=== PATIENT | female | born 1945 | race Caucasian/White ===

== ENCOUNTER 2017-04-30 18:47 | Emergency (ER) | payer OTHER ==
--- NOTE | 2017-04-30 18:47 | EDPHY ---
H & P Time Seen by Provider: 04/30/17 18:47 Source: Patient Constitutional: Initial Vital Signs Temperature (C) 36.9 C 04/30/17 18:59 Heart Rate 105 H 04/30/17 18:59 Respiratory Rate 20 04/30/17 18:59 Blood Pressure 158/91 H 04/30/17 18:59 O2 Sat (%) 93 04/30/17 18:59 O2 Delivery Mode Room Air Allergies/Adverse Reactions: No Known Allergies Allergy (Unverified 04/30/17 18:58) Home Medications: Medication Instructions Recorded GABAPENTIN 04/30/17 traMADol 04/30/17 Medical Decision Making - Diagnostics Imaging: I viewed and interpreted images myself ED Course/Re-evaluation: CHIEF COMPLAINT: Head and toe injury HISTORY OF PRESENT ILLNESS: The patient is a 71-year-old female, brought in by EMS, after a mechanical fall presents with head hematoma and toe injury. The patient was walking into [employer] and tripped on the rug. She fell forward and hit the front left of her head. The patient did not lose consciousness. No reported amnesia. Patient only complains of right toe pain. On scene she had mild neck pain and was placed in a cervical collar. Patient no longer has cervical pain. She states she took two Tramadol 1 hour ago. Patient is not on anticoagulants. REVIEW OF SYSTEMS: A 10 point review of systems was performed and is negative with the exception of the elements mentioned in the history of present illness. PHYSICAL EXAM: HR, BP, O2 Sat, RR. Temp noted General Appearance: Alert, well hydrated, appropriate, and non-toxic appearing. Head: Hematoma to front left forehead. Eyes: Pupils equal, round, reactive to light and accommodation, EOMI, no trauma , no injection. Ears: Clear bilaterally, no perforation, normal landmarks Nose: Atraumatic, no rhinorrhea, clear. Throat: There is no erythema or exudates, no lesions, normal tonsils, mucus membranes moist. Neck: Supple, 2+ carotid upstroke, nontender, no lymphadenopathy. Respiratory: No retractions, no distress, no wheezes, and no accessory muscle use. Lungs are clear to auscultation bilaterally. Cardiovascular: Regular rate and rhythm, no murmurs, rubs, or gallops. Bilateral carotid, radial, dorsalis pedis, and posterior tibial pulses intact. Good capillary refill all extremities. Gastrointestinal: Abdomen is soft, nontender, non-distended, no masses, no rebound, no guarding, no peritoneal signs. Musculoskeletal: Normal active ROM of all extremities, atraumatic. Neurological: Alert, appropriate, and interactive. The patient has normal DTRs and non-focal cranial nerves, motor, sensory, and cerebellar exam. Skin: No rashes, good turgor, no nodules on palpation. Past medical history: Fibromyalgia. Past surgical history: Denies. Family history: Noncontributory. Social history: . DIAGNOSTICS/PROCEDURES/CRITICAL CARE TIME: An x-ray of right toe was obtained. I viewed the images myself on the PACS system: Proximal phalanx fracture of the right great toe, nondisplaced. See the full radiology report in the imaging section. DIFFERENTIAL DIAGNOSIS: The differential diagnosis for the patient's trauma included but was not limited to intracranial injury, long bone and pelvic bone fractures, spinal injury, intra-abdominal injury, and intra-thoracic injury. MEDICAL DECISION MAKING: The patient comes to the ED after a mechanical fall. Patient tripped and fell forward. She complains of pain to right great toe. Patient has hematoma to left forehead. No LOC. No amnesia. I removed the patient 's cervical collar, no spinal tenderness. Patient does not meet [facility] CT head criteria. I will order x-ray of right great toe. I will check electrolytes to look for signs of SIADH. X-ray shows proximal phalanx fracture of the right great toe. Plan for vikram tape. Departure - Departure Disposition: Home, Routine, Self-Care Clinical Impression: Accidental mechanical suffocation by falling earth or other substance Facial contusion Qualifiers: Encounter type: initial encounter Qualified Code(s): S00.83XA - Contusion of other part of head, initial encounter Toe fracture, right Qualifiers: Encounter type: initial encounter Toe: great toe Fracture type: closed Phalanx : proximal Fracture alignment: nondisplaced Qualified Code(s): S92.414A - Nondisplaced fracture of proximal phalanx of right great toe, initial encounter for closed fracture Condition: Good Instructions: Facial Contusion (ED), Toe Fracture (ED) Additional Instructions: Apply ice to your head and right big toe to help reduce pain and swelling. Followup with your [place] physician as needed. Referrals: [facility] [Provider Group] - As per Instructions Report Scribed for: Filippo Calhoun Report Scribed by: Gill Vale Date of Report: 04/30/17 Time of Report: 19:00
[2017-04-30 20:26] VITALS: BP 141/85; PULSE 100; RESP 18; TEMP 98.2; O2SAT 92
== END 2017-04-30 20:25 | disposition home or self-care (01) ==
LOC: EDUNIT#
DX: S92.414A Nondisplaced fracture of proximal phalanx of right great toe, initial encounter for closed fracture (principal); S00.83XA Contusion of other part of head, initial encounter; W01.0XXA Fall on same level from slipping, tripping and stumbling without subsequent striking against object, initial encounter; Y92.511 Restaurant or cafe as the place of occurrence of the external cause; Y99.8 Other external cause status; Y93.01 Activity, walking, marching and hiking
CPT/HCPCS: 73660; 99283; L3260